=== PATIENT | female | born 1975 | race Caucasian/White ===

== ENCOUNTER → 2019-09-08 10:10 | Outpatient (BNVA) | payer OTHER, SELFPAY | PROVIDERS: Family Provider Nurse Practitioner Family; PCP Nurse Practitioner Family; Visit Provider Nurse Practitioner Family | DX: J98.8 Other specified respiratory disorders (principal); B96.89 Other specified bacterial agents as the cause of diseases classified elsewhere; R05 Cough | CPT/HCPCS: 87804 ==

== ENCOUNTER → 2019-09-08 14:09 | Outpatient (BNVA) | payer OTHER, SELFPAY | PROVIDERS: Family Provider Nurse Practitioner Family; PCP Nurse Practitioner Family; Visit Provider Anesthesiology | DX: G89.29 Other chronic pain (principal); M54.41 Lumbago with sciatica, right side; M79.651 Pain in right thigh; F17.210 Nicotine dependence, cigarettes, uncomplicated; Z87.39 Personal history of other diseases of the musculoskeletal system and connective tissue; Z79.891 Long term (current) use of opiate analgesic | CPT/HCPCS: 99214 ==

== ENCOUNTER 2019-09-27 16:47 | Emergency (ER) | payer OTHER, SELFPAY ==
[2019-09-27 16:50] VITALS: BP 143/101; PULSE 90; RESP 16; TEMP 36.8; O2SAT 98; BMI 32.5
--- NOTE | 2019-09-27 17:02 | W.ED.BACK ---
HPI - Back Pain/Injury General: Chief Complaint: Back Pain/Injury Stated Complaint: BACK, LEG AND HIP PAIN Time Seen by Provider: 09/27/19 17:01 History of Present Illness: HPI Narrative: Patient is a 43-year-old female comes to the ED with acute on chronic lower back pain. Patient states that yesterday she bent over to lift something and she felt something pop in her lower back and she is now having intense pain in the lower back that radiates down right leg. Patient says she has chronic back issues and actually has a pain contract and currently takes hydrocodone for the pain. Patient says she is taken her hydrocodone and it has not helped with the pain at all. She rates the pain a 10 out of 10. Denies any numbness or tingling down the extremities, bladder or bowel incontinence or loss of sensation in the pelvic region. Associated symptoms: Deny abdominal pain, chills, dysuria, fatigue, fever(s), hematuria, nausea or vomiting Review of Systems Const: Denies: fever, chills or fatigue Eyes: Denies: change in vision or eye discomfort ENMT: Denies: throat pain, painful swallowing, nasal discharge or nasal congestion Card: Denies: chest pain, palpitations, edema, swelling of feet/ankles, shortness of breath on exertion or shortness of breath when lying down Resp: Denies: shortness of breath, productive cough or non-productive cough GI: Denies: abdominal pain, nausea, vomiting, diarrhea, constipation or blood in stool : Denies: flank pain, painful urination or blood in urine Musc: Reports: back pain (lower back pain) and extremity pain (back pain radiates down right leg); Denies: neck pain or extremity swelling Skin/Breast: Denies: rash or new lesion Neuro: Denies: headache, numbness in extremities or weakness in extremities PFS ED PFSH: Medical History Chronic midline low back pain with right-sided sciatica Encounter for long-term use of opiate analgesic H/O low back pain Opioid contract exists Surgical History H/O knee surgery H/O tubal ligation History of hysterectomy Family History Other Diabetes Hypertension Lung disease Psychiatric illness Social History Smoking and tobacco status: current every day smoker cigarettes Packs smoked per day: 0.5 Quit status (tobacco): has tried quititng Second hand smoke exposure: Yes Smoking risk assessment/counseling performed?: No Alcohol intake: current Adopted: No Caregiver/support person: No Lives independently: Yes Physical Exam Narrative: EXAM NARRATIVE: Patient is a 43-year-old female who was lying on the exam bed when I enter the room and appears to be in acute pain. She is crying and has tears in her eyes due to pain. Const: COMMON NORMALS: oriented x3 HENMT: COMMON NORMALS: normocephalic HEAD & SCALP: normocephalic MOUTH: oral and palatal mucosa normal THROAT: posterior oropharynx normal and uvula midline Neck/C-Spine: COMMON NORMALS: supple GENERAL: Yes normal visual inspection Resp: COMMON NORMALS: normal respiratory effort, no retractions, no use of accessory muscles and clear to auscultation bilaterally AUSCULTATION: clear to auscultation bilaterally Cardio: COMMON NORMALS: regular rate, regular rhythm, S1 normal heart sound, S2 normal heart sound, no gallops, no clicks, no murmurs and peripheral pulses 2+ throughout RATE: regular rate RHYTHM: regular rhythm HEART SOUNDS: S1 normal and S2 normal PERIPHERAL PULSES: pulses 2+ throughout GI: COMMON NORMALS: normal to inspection, nondistended, normoactive bowel sounds, soft to palpation, non-tender and no masses PALPATION: Yes soft : COMMON NORMALS: Yes no CVA tenderness BLADDER/KIDNEY EXAM: Yes no CVA tenderness Back/Pelvis: COMMON NORMALS: no CVA tenderness Extremity: COMMON NORMALS: normal to inspection Neuro: COMMON NORMALS: oriented x3 and moves all extremities Skin: COMMON NORMALS: no rashes or lesions noted GENERAL SKIN EXAM: no rashes or lesions noted and dry skin Course Vital Signs: Vital signs: Vital Signs Temperature 98.2 F 09/27/19 16:50 Pulse Rate 89 09/27/19 18:39 Respiratory Rate 16 09/27/19 18:39 Blood Pressure 155/93 09/27/19 18:39 Pulse Oximetry 97 09/27/19 18:39 MDM - Back Pain/Injury Imaging Data^: Other CT: Attestation: I personally reviewed and interpreted this imaging study as follows: Radiologist's impression: [address] [address] [address] Scan Report Signed Patient: Melisa Nascimento Unit #: [id number] : 1975 Age/Sex: 43 / F ADM Date: 09/27/19 Loc: ER Room/Bed: Attending Dr: Ordering Provider/Ordering MD: Luis Rios Date of Service: 09/27/19 Procedure(s): CT lumbar spine wo con* [id number] Accession Number(s): [id number] Report Number: [id number] PROCEDURE INFORMATION: Exam: CT Lumbar Spine Without Contrast Exam date and time: 09/27/2019 5:21 PM Age: 43 years old Clinical indication: Low back pain; Additional info: Back pain with radiculopathy TECHNIQUE: Imaging protocol: Computed tomography images of the lumbar spine without contrast. Total DLP: 2603.15 mGy-cm Radiation optimization: All CT scans at this facility use at least one of these dose optimization techniques: automated exposure control; mA and/or kV adjustment per patient size (includes targeted exams where dose is matched to clinical indication); or iterative reconstruction. COMPARISON: MRI Lumbar Spine w/o [id number] 04/29/2019 5:45 PM FINDINGS: Vertebrae: No visible fracture, subluxation, or dislocation. No visible traumatic spondylolysis or spondylolisthesis. Rare bone island. Discs/Spinal canal/Neural foramina: Mild degenerative disc disease with mild disc space height loss and mild vacuum disc phenomenon L2/L3. Anterior/ventral annular disc bulge. No visible significant posterior disc bulge or HNP. Mild left paramedian focal annular disc bulge L4/L5 without central canal stenosis or evidence for nerve root compromise. Mild posterior disc bulge L5/S1 not resulting in central canal stenosis or neural foraminal crush mint. No significant facet arthrosis. Vasculature: The visualized portion of the abdominal aorta is nonaneurysmal. Mild arterial sclerotic disease. No other visible active pathologic process within the retroperitoneal space within the field of view. Soft tissues: Unremarkable. No visible paraspinal muscle atrophy. CT/CT lumbar spine wo con* [id number] IMPRESSION: 1. No visible evidence of active or acute osseous pathology. 2. Mild degenerative disc disease with mild disc space height loss and vacuum disc phenomena L2/L3. 3. No visible herniated nucleus pulposis or significant posterior annular disc bulge that would result in central canal stenosis or neural foraminal carotid. 4. Mild left paramedian focal annular disc bulge L4/L5 without central canal stenosis or visible nerve root compromise. Radiation Dose CTDIVOL = (mGy): DLP = 2603.15 (mGy-cm) Dictated By: Sven Rizvi Signed By: Sven Rizvi Signed Date/Time: 09/27/191801 DD/ 58 Discharge Plan Discharge Patient Disposition: Home, Self-Care Clinical Impression: Chronic midline low back pain with right-sided sciatica Condition: Stable Prescriptions: No Action duloxetine 60 mg capsule, delayed rel sprinkle 60 mg PO DAILY RF: 0 clonidine HCl 0.1 mg tablet 0.1 mg PO .PRN RF: 0 acetaminophen [Tylenol Extra Strength] 500 mg tablet 500 mg PO DAILY PRN (Reason: Pain) RF: 0 lisinopril-hydrochlorothiazide 20-25 mg tablet 1 tab PO DAILY RF: 0 tizanidine 2 mg tablet 2 mg PO TID PRN (Reason: MUSCLE SPASMS) RF: 0 hydrocodone-acetaminophen 5-325 mg tablet 1 tab PO QID PRN (Reason: pain) 30 Days Qty: 120 RF: 0 Discharge Orders: Discharge Order (Routine); Ordered 09/27/19 Ordered By: Luis Rios Referrals: Sindi El FNP [Primary Care Provider] - Discharge Diet: Regular Discharge Activity: Increase activity as tolerated Patient Instructions: Lumbar Radiculopathy (ED) Activity Restrictions/Additional Instructions: Follow-up with your PCP in 5 to 7 days for reevaluation. Take full course of steroids as prescribed. Continue taking your previously prescribed pain medication as directed by Stand Alone Forms: Work/School Release Discharge Date/Time: 09/27/19 18:40 Coding Level of Care Code ED Linux Programmer for Yadiel Fwd Exam Comprehensive
[2019-09-27 17:04] VITALS: O2SAT 98
--- NOTE | 2019-09-27 17:14 | CTR_ITS ---
PROCEDURE INFORMATION: Exam: CT Lumbar Spine Without Contrast Exam date and time: 09/27/2019 5:21 PM Age: 43 years old Clinical indication: Low back pain; Additional info: Back pain with radiculopathy TECHNIQUE: Imaging protocol: Computed tomography images of the lumbar spine without contrast. Total DLP: 2603.15 mGy-cm Radiation optimization: All CT scans at this facility use at least one of these dose optimization techniques: automated exposure control; mA and/or kV adjustment per patient size (includes targeted exams where dose is matched to clinical indication); or iterative reconstruction. COMPARISON: MRI Lumbar Spine w/o [id number] 04/29/2019 5:45 PM FINDINGS: Vertebrae: No visible fracture, subluxation, or dislocation. No visible traumatic spondylolysis or spondylolisthesis. Rare bone island. Discs/Spinal canal/Neural foramina: Mild degenerative disc disease with mild disc space height loss and mild vacuum disc phenomenon L2/L3. Anterior/ventral annular disc bulge. No visible significant posterior disc bulge or HNP. Mild left paramedian focal annular disc bulge L4/L5 without central canal stenosis or evidence for nerve root compromise. Mild posterior disc bulge L5/S1 not resulting in central canal stenosis or neural foraminal crush mint. No significant facet arthrosis. Vasculature: The visualized portion of the abdominal aorta is nonaneurysmal. Mild arterial sclerotic disease. No other visible active pathologic process within the retroperitoneal space within the field of view. Soft tissues: Unremarkable. No visible paraspinal muscle atrophy. CT/CT lumbar spine wo con* [id number] IMPRESSION: 1. No visible evidence of active or acute osseous pathology. 2. Mild degenerative disc disease with mild disc space height loss and vacuum disc phenomena L2/L3. 3. No visible herniated nucleus pulposis or significant posterior annular disc bulge that would result in central canal stenosis or neural foraminal carotid. 4. Mild left paramedian focal annular disc bulge L4/L5 without central canal stenosis or visible nerve root compromise. Radiation Dose CTDIVOL = (mGy): DLP = 2603.15 (mGy-cm)
[2019-09-27] MEDS: predniSONE 20 mg Tablet 60 MG PO (17:20)
[2019-09-27] MEDS: morphine 4 mg/mL SDV 1 mL IM (17:20)
[2019-09-27 18:39] VITALS: BP 155/93; PULSE 89; RESP 16; O2SAT 97
== END 2019-09-27 18:40 | disposition home or self-care (01) ==
PROVIDERS: Emergency Provider Physician Assistant; Family Provider Nurse Practitioner Family; PCP Nurse Practitioner Family
DX: M54.41 Lumbago with sciatica, right side (principal); F17.210 Nicotine dependence, cigarettes, uncomplicated
CPT/HCPCS: 12345; 72131; 96372; 99281; 99283; J2270; J7512

== ENCOUNTER 2019-10-02 13:33 | Outpatient (CLI) | payer OTHER, SELFPAY ==
--- NOTE | 2019-10-02 13:45 | MR_ITS ---
WS: [id number] MRI LUMBAR SPINE NONCONTRAST TECHNIQUE: Sagittal T1, T2 and STIR imaging. Axial T1 and T2 imaging. CLINICAL INFORMATION: increased chronic lower back pain with numbness COMPARISON: MRI April 29, 2019 CT September 2019 FINDINGS: Mild lumbar curve. No acute compression. Schmorl's nodes in the lower thoracic and upper lumbar spine . No high-grade central canal stenosis. L1-L2: Normal. L2-L3: Mild annular bulging. Spinal canal and foramen are patent. L3-L4: Mild annular bulging. Mild facet arthropathy. Spinal canal and foramen are patent. L4-L5: Small shallow left pericentral protrusion. Impingement traversing left L5 nerve root in the knihgt barticular recess. Recommend correlation for left L5 nerve root symptoms. Foramen are patent. Moderat e facet arthropathy. L5-S1: Tiny shallow central protrusion with slight effacement of ventral thecal sac. Spinal canal and foramen are patent. Moderate facet arthropathy. Visualized pelvic bony structures: Normal. Paravertebral soft tissues: Normal. MR/MR lumbar spine wo con* [id number] IMPRESSION: 1. Mild lumbar curve. No acute compression. No high-grade central canal stenos is. 2. Small left subarticular disc protrusion L4-5 impinges the traversing left L 5 nerve root in the subarticular recess.Correlation left L5 nerve root symptoms . This is similar in appearance to 2019. 3. Tiny central herniation L5-S1. No significant nerve root impingement. 4. Mild annular bulging L2-L3 and L3-L4. 5. Moderate facet arthropathy L4-L5 and L5-S1. 6. Overall no significant changes since April 29, 2019
== END 2019-10-02 13:34 | disposition home or self-care (01) ==
LOC: RADSHAW 13:33
PROVIDERS: Family Provider Nurse Practitioner Family; PCP Nurse Practitioner Family; Visit Provider Nurse Practitioner Family
DX: M51.27 Other intervertebral disc displacement, lumbosacral region (principal); M51.26 Other intervertebral disc displacement, lumbar region; G89.29 Other chronic pain; R20.0 Anesthesia of skin
CPT/HCPCS: 72148

== ENCOUNTER 2019-11-29 21:44 | Emergency (ER) | payer OTHER, SELFPAY ==
[2019-11-29 21:55] VITALS: BP 131/85; PULSE 81; RESP 18; TEMP 36.9; O2SAT 97; BMI 31.9
--- NOTE | 2019-11-29 22:15 | XR_ITS ---
WS: [id number] LEFT FOOT: 3 VIEW(S) TECHNIQUE: AP, oblique and lateral. HISTORY: trauma COMPARISON: None available. No acute fracture or dislocation. Normal tarsal/metatarsal alignment. No soft tissue abnormality or bone destruction. XR/XR foot LT min 3V* [id number] IMPRESSION: Normal LEFT foot.
--- NOTE | 2019-11-29 22:16 | ED_ITS ---
HPI - Extremity Problem General: Chief complaint: Extremity Injury, Lower Stated complaint: leg pain Time Seen by Provider: 11/29/19 22:09 History of Present Illness: HPI Narrative: Patient states she injured her left foot a couple 3 days ago and is hurt continually has pain on weightbearing said she has some swelling to the left forefoot and has not improved MD Complaint: extremity pain and extremity swelling Onset (ago): day(s) Pain Consistency: constant Location: left and lower extremity Severity scale (1-10): 4 Quality: aching Radiation: other (Upper leg) Relieving factors: rest Exacerbating factors: weight bearing Associated symptoms: Reports no associated symptoms; Deny chest pain, fever(s) or rash Review of Systems Const: Denies: fever, chills or body aches Eyes: Denies: change in vision or blurry vision ENMT: Denies: throat pain or nasal congestion Card: Denies: chest pain or shortness of breath on exertion Resp: Denies: shortness of breath, productive cough or non-productive cough GI: Denies: abdominal pain, nausea or vomiting Musc: Denies: extremity pain Skin/Breast: Reports: other (Left foot pain); Denies: rash Neuro: Denies: headache Psych: Denies: anxiety or depression Dudley/Lymph: Denies: easy bruising PFSH ED PFSH: Social History Smoking and tobacco status: current every day smoker cigarettes Packs smoked per day: 0.5 Quit status (tobacco): has tried quititng Second hand smoke exposure: Yes Smoking risk assessment/counseling performed?: No Alcohol intake: current Adopted: No Caregiver/support person: No Lives independently: Yes Female Reproductive History: Date of last menstrual period: 12/20/10 Physical Exam Const: COMMON NORMALS: no apparent distress, average body habitus and oriented x3 HENMT: COMMON NORMALS: normocephalic HEAD & SCALP: normal to inspection and normocephalic FACE & SINUS: normal facial exam Eye: COMMON NORMALS: conjunctivae normal GENERAL EYE: normal appearance of both eyes CONJUNCTIVA: Yes conjunctivae normal Neck/C-Spine: COMMON NORMALS: no JVD Chest: COMMONS NORMALS: inspection of chest normal Resp: COMMON NORMALS: normal respiratory effort and clear to auscultation bilaterally AUSCULTATION: clear to auscultation bilaterally Cardio: COMMON NORMALS: no JVD, regular rate and regular rhythm RATE: regular rate RHYTHM: regular rhythm GI: COMMON NORMALS: normal to inspection, nondistended, normoactive bowel sounds Extremity: COMMON NORMALS: normal to inspection and full ROM (Using crutches) LEFT LOWER EXTREMITY: Yes foot & digits (Mild tenderness to left foot without bruising swelling or other problems does have full range of motion) Neuro: COMMON NORMALS: oriented x3 Course Vital Signs: Vital signs: Vital Signs Temperature 98.5 F 11/29/19 21:55 Pulse Rate 81 11/29/19 21:55 Respiratory Rate 18 11/29/19 21:55 Blood Pressure 131/85 11/29/19 21:55 Pulse Oximetry 97 11/29/19 21:55 Discharge Plan Discharge Prescriptions: No Action duloxetine 60 mg capsule, delayed rel sprinkle 60 mg PO DAILY RF: 0 clonidine HCl 0.1 mg tablet 0.1 mg PO .PRN RF: 0 acetaminophen [Tylenol Extra Strength] 500 mg tablet 500 mg PO DAILY PRN (Reason: Pain) RF: 0 cetirizine [Zyrtec] 10 mg tablet 10 mg PO BID RF: 0 multivitamin Tablet 1 tab PO DAILY RF: 0 lisinopril-hydrochlorothiazide 20-25 mg tablet 1 tab PO DAILY Qty: 90 RF: 3 tizanidine 4 mg tablet 4 mg PO TID PRN (Reason: muscle spasticity) Qty: 90 RF: 1 hydrocodone-acetaminophen 5-325 mg tablet 1 tab PO QID PRN (Reason: pain) 30 Days Qty: 120 RF: 0 hydrocodone-acetaminophen 5-325 mg tablet 1 tab PO QID PRN (Reason: pain) 30 Days Qty: 120 RF: 0 Coding Level of Care Code ED Insurance Service Representative for Yadiel Villar
[2019-11-29 23:23] VITALS: BP 136/74; PULSE 84; RESP 18; O2SAT 98
== END 2019-11-29 23:24 | disposition home or self-care (01) ==
PROVIDERS: Emergency Provider Nurse Practitioner Family; PCP Nurse Practitioner Family
DX: M79.672 Pain in left foot (principal); F17.210 Nicotine dependence, cigarettes, uncomplicated
CPT/HCPCS: 12345; 73630; 99281; 99282

== ENCOUNTER → 2020-02-09 13:41 | Outpatient (BNVA) | payer OTHER, SELFPAY | PROVIDERS: PCP Nurse Practitioner Family; Visit Provider Anesthesiology | DX: G89.29 Other chronic pain (principal); M54.41 Lumbago with sciatica, right side; F17.210 Nicotine dependence, cigarettes, uncomplicated; Z79.891 Long term (current) use of opiate analgesic; Z87.39 Personal history of other diseases of the musculoskeletal system and connective tissue; Z71.6 Tobacco abuse counseling | CPT/HCPCS: 99214 ==

== ENCOUNTER 2020-05-30 14:20 | Emergency (ER) | payer OTHER, SELFPAY ==
[2020-05-30 14:37] VITALS: BP 136/79; PULSE 68; RESP 16; TEMP 36.8; O2SAT 100; BMI 34.2
--- NOTE | 2020-05-30 14:52 | XR_ITS ---
WS: [id number] XR hand RT min 3V* [id number] REASON FOR EXAM: hand pain FINDINGS: Joint spaces of the right hand are well preserved. No fracture or other focal bony abnormality is identified. No soft tissue tissue abnormality. XR/XR hand RT min 3V* [id number] IMPRESSION: No significant focal abnormality.
--- NOTE | 2020-05-30 14:53 | ED_ITS ---
HPI - Extremity Problem General: Chief complaint: Extremity Injury, Upper Stated complaint: Right Hand Injury Pain/Swelling Time Seen by Provider: 05/30/20 14:45 Source: patient Mode of arrival: ambulatory Limitations: no limitations History of Present Illness: HPI Narrative: 44-year-old female patient presents to the emergency department with right hand pain. She reports a door with the ulnar side of the right hand this morning around 4:30 AM. She reports pains to the ulnar side with radiation of pain distally and proximally. MD Complaint: joint swelling (rt hand) Pain Consistency: constant Location: right and upper extremity Severity scale (1-10): 7 Quality: aching and dull Radiation: proximal and distal Relieving factors: immobilization and rest Exacerbating factors: range of motion Associated symptoms: Reports no associated symptoms; Deny chest pain, fever(s) or rash Review of Systems General: Reports: 10 or more systems reviewed and unremarkable except in HPI and below Const: Denies: fever(s), chills or diaphoresis Eyes: Denies: blurry vision or eye redness ENMT: Denies: throat pain, dental pain or disequilibrium Card: Denies: chest pain, palpitations or irregular heart rhythm Resp: Denies: dyspnea, productive cough, non-productive cough or wheezing GI: Denies: abdominal pain, nausea or vomiting : Denies: difficulty voiding or dysuria Musc: Reports: extremity swelling (rt ulnar hand); Denies: neck pain or back pain Skin/Breast: Denies: rash or pruritus Neuro: Denies: headache(s), weakness in extremities or behavioral changes Psych: Denies: anxiety or depression Dudley/Lymph: Denies: easy bruising PFSH ED PFSH: Medical History Chronic midline low back pain with right-sided sciatica Encounter for long-term use of opiate analgesic H/O low back pain Opioid contract exists Smoker Surgical History H/O knee surgery H/O tubal ligation History of hysterectomy Family History Other Diabetes Hypertension Lung disease Psychiatric illness Social History Smoking and tobacco status: current every day smoker cigarettes Packs smoked per day: 0.5 Quit status (tobacco): has tried quititng Second hand smoke exposure: Yes Smoking risk assessment/counseling performed?: No Alcohol intake: current Adopted: No Caregiver/support person: No Lives independently: Yes Female Reproductive History: Date of last menstrual period: 12/20/10 Physical Exam Const: COMMON NORMALS: no acute distress, patient oriented x3, healthy ap pearing and alert GENERAL APPEARANCE: cooperative, comfortable and well hydrated HENMT: COMMON NORMALS: normocephalic, Normal external nose present and moist oral mucous membranes HEAD & SCALP: normocephalic NOSE: Normal external nose present Eye: COMMON NORMALS: Equal, round and reactive pupils present and EOMs intact bilaterally GENERAL EYE: appearance normal, both eyes and all related structures PUPIL: Yes Equal, round and reactive pupils present Neck/C-Spine: COMMON NORMALS: full ROM and no lymphadenopathy GENERAL: Yes normal visual inspection and Yes trachea midline CERVICAL SPINE: Yes cervical ROM normal Lymph: LYMPHATIC: no lymphadenopathy noted Chest: COMMONS NORMALS: normal inspection of the chest Resp: COMMON NORMALS: normal respiratory effort and clear to auscultation b ilaterally AUSCULTATION: clear to auscultation bilaterally Cardio: COMMON NORMALS: regular rhythm, S1 normal heart sound present, S2 normal heart sound present and Peripheral pulses 2+ throughout RHYTHM: regular rhythm HEART SOUNDS: S1 normal heart sound present and S2 normal heart sound present PERIPHERAL PULSES: Peripheral pulses 2+ throughout GI: COMMON NORMALS: Soft to palpation and non-tender INSPECTION: Yes normal to inspection PALPATION: Yes Soft to palpation : COMMON NORMALS: Yes no CVA tenderness BLADDER/KIDNEY EXAM: Yes no CVA tenderness Back/Pelvis: COMMON NORMALS: no CVA tenderness and thoracic and lumbar spine normal to inspection Extremity: COMMON NORMALS: normal to inspection and capillary refill normal GENERAL: Yes normal exam except as noted RIGHT UPPER EXTREMITY: Yes hand & digits Right hand and digits: Yes inspection (edema and swelling to the rt ulnar hand - 4th and 5th MCP), Yes ROM exam (limited flexion/extension 4th and 5th fingers due to pain) and Yes neurovascular exam (distally intact) Neuro: COMMON NORMALS: patient oriented x3 and no focal motor deficits SENSORIUM/ORIENTATION: Yes alert Psych: COMMON NORMALS: mental status grossly normal, Normal thought process present and cooperative ACTIVITY/MOTOR BEHAVIOR: Yes appropriate eye contact THOUGHT PROCESS: Normal thought process present Skin: COMMON NORMALS: no rashes or lesions noted and turgor normal GENERAL SKIN EXAM: no rashes or lesions noted and turgor normal Course Vital Signs: Vital signs: Vital Signs Temperature 98.3 F 05/30/20 14:37 Pulse Rate 63 05/30/20 16:02 Respiratory Rate 14 05/30/20 16:02 Blood Pressure 133/65 05/30/20 16:02 Pulse Oximetry 97 05/30/20 16:02 MDM - Extremity (Nontraumatic) Imaging Data^: Xray Ortho: Radiologist's impression: [address] [address] XRay Report Signed Patient: Melisa Nascimento Unit #: [id number] : 1975 Age/Sex: 44 / F ADM Date: 05/30/20 Loc: ER Room/Bed: Attending Dr: Ordering Provider/Ordering MD: Nae Williamson Date of Service: 05/30/20 Procedure(s): XR hand RT min 3V* [id number] Accession Number(s): [id number] Report Number: [id number] WS: [id number] XR hand RT min 3V* [id number] REASON FOR EXAM: hand pain FINDINGS: Joint spaces of the right hand are well preserved. No fracture or other focal bony abnormality is identified. No soft tissue tissue abnormality. XR/XR hand RT min 3V* [id number] IMPRESSION: No significant focal abnormality. Dictated By: Rajinder Padilla Jr, MD Signed By: Rajinder Padilla Jr, MD Signed Date/Time: 05/30/201516 DD/ 14 Discharge Plan Discharge Condition: Stable Prescriptions: No Action duloxetine 60 mg capsule, delayed rel sprinkle 60 mg PO DAILY RF: 0 clonidine HCl 0.1 mg tablet 0.1 mg PO .PRN RF: 0 acetaminophen [Tylenol Extra Strength] 500 mg tablet 500 mg PO DAILY PRN (Reason: Pain) RF: 0 cetirizine [Zyrtec] 10 mg tablet 10 mg PO BID RF: 0 multivitamin Tablet 1 tab PO DAILY RF: 0 lisinopril-hydrochlorothiazide 20-25 mg tablet 1 tab PO DAILY Qty: 90 RF: 3 tizanidine 4 mg tablet 4 mg PO TID PRN (Reason: muscle spasticity) Qty: 90 RF: 1 hydrocodone-acetaminophen 5-325 mg tablet 1 tab PO QID PRN (Reason: pain) 30 Days Qty: 120 RF: 0 hydrocodone-acetaminophen 5-325 mg tablet 1 tab PO QID PRN (Reason: pain) 30 Days Qty: 120 RF: 0 Discharge Orders: Discharge Order (Routine); Ordered 05/30/20 Ordered By: Nae Williamson Referrals: Sindi El, CANCER REGISTRY COORDINATOR [Primary Care Provider] - Discharge Diet: Usual diet Discharge Activity: Limit activity as instructed Patient Instructions: Wrist Injury (ED), Contusion in Adults (ED), Sprains - W rist Activity Restrictions/Additional Instructions: Take ibuprofen/Tylenol as needed for pain Continue with cool compresses as needed to help with pain, wear a Velcro wrist splint to help with pain until better Follow-up with your primary care provider in 5 days if not improving Limit mobility of the hand and wrist to help with pain Coding Level of Care Code ED Tobacco Blender for Chg Fwd Exam Comprehensive
[2020-05-30] MEDS: HYDROcodone-acetaminophen 5-325 mg Tablet 1 TAB PO (14:58)
[2020-05-30 16:02] VITALS: BP 133/65; PULSE 63; RESP 14; O2SAT 97
== END 2020-05-30 16:03 ==
PROVIDERS: Emergency Provider Nurse Practitioner Family; PCP Nurse Practitioner Family
DX: M79.641 Pain in right hand (principal); F17.210 Nicotine dependence, cigarettes, uncomplicated
CPT/HCPCS: 12345; 29125; 73130; 99281; 99283

== ENCOUNTER 2021-02-15 08:56 | Emergency (ER) | payer OTHER, SELFPAY ==
[2021-02-15 09:30] VITALS: BP 138/31; PULSE 106; RESP 16; TEMP 36.7; O2SAT 97; BMI 33.2
--- NOTE | 2021-02-15 09:30 | ECG_ITS ---
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 Measurements Intervals [place] Rate: 59 P: 72 VA: 156 QRS: 83 QRSD: 89 T: 68 QT: 446 QTc: 445 Interpretive Statements SINUS BRADYCARDIA LOW QRS VOLTAGE IN PRECORDIAL LEADS [QRS DEFLECTION < 1.0 mV IN CHEST LEADS] SEPTAL MYOCARDIAL INFARCTION [40+ ms Q WAVE IN V1/V2], OF INDETERMINATE AGE Compared to ECG 03/20/2019 11:11:34 Low QRS voltage now present Myocardial infarct finding now present Sinus tachycardia no longer present First degree AV block no longer present ST (T wave) deviation no longer present Electronically Signed On 02-20-2021 0:28:50 CDT by Zohra Flowers M.D. [id number]
--- NOTE | 2021-02-15 09:30 | XR_ITS ---
WS: [id number] XR chest 1V portable [id number] REASON FOR EXAM: chest pain FINDINGS: The chest appears unchanged compared to 03/20/2019 The heart and mediastinum are within normal limits. Calcified granulomatous changes in both hemithoraces. No active pulmonary parenchymal or pleural dise ase. Normal bony thorax. XR/XR chest 1V portable [id number] IMPRESSION: No acute abnormality.
[2021-02-15 10:33] VITALS: BP 134/68; PULSE 51; RESP 18; O2SAT 98
--- NOTE | 2021-02-15 10:48 | ED_ITS ---
HPI - Chest Pain General: Chief Complaint: Chest Pain Stated Complaint: Chest Pain Time Seen by Provider: 02/15/21 10:37 Source: patient Mode of arrival: ambulatory Limitations: no limitations History of Present Illness: HPI narrative: Patient is a nice 45-year-old female who presents to ED today for evaluation of chest pain. Patient states she awoke around 3 AM with chest pain that she states felt very similar to heartburn. She states she took Tums and drank some ice cold water. She states she contacted some form of a nursing line who recommended she come to the ED for cardiac evaluation stating that the most common presenting symptom in females with heart attacks is heartburn . This gave her much anxiety and states then she had an anxiety attack. Patient has no cardiac or pulmonary abnormalities. She does feel like breathing exercises as well as the Tums and cold water help with her symptoms. MD complaint: chest pain Onset (ago): hour(s) Prior episodes: No Onset: during rest Pain location: substernal Pain radiation: none Severity: moderate Pain scale (0-10): 5 Relieving factors: antacids and other (cold water, breathing exercises ) Exacerbating factors: nothing Associated symptoms: Deny abdominal pain, diaphoresis, dyspnea, fever(s), nausea, palpitations, syncope or vomiting Risk Factors: Coronary artery disease risk factors: smoking history Thoracic aortic dissection risk factors: none Related Data: On Oral Contraceptives: No Review of Systems Const: Denies: fever(s), chills, body aches, fatigue, malaise or diaphoresis Card: Reports: chest pain; Denies: palpitations, irregular heart rhythm, edema, swelling of feet/ankles, lightheadedness, syncope, pre-syncope, dyspnea on exertion, orthopnea, leg pain with exertion or acrocyanosis Resp: Denies: dyspnea, productive cough, wheezing, hemoptysis or chest congestion GI: Denies: abdominal pain, nausea or vomiting Musc: Denies: neck pain Skin/Breast: Denies: rash Neuro: Denies: headache(s) PFSH ED PFSH: Medical History Chronic midline low back pain with right-sided sciatica Encounter for long-term use of opiate analgesic H/O low back pain Opioid contract exists Smoker Surgical History H/O knee surgery H/O tubal ligation History of hysterectomy Family History Other Diabetes Hypertension Lung disease Psychiatric illness Social History Smoking and tobacco status: current every day smoker cigarettes Packs smoked per day: 0.5 Quit status (tobacco): has tried quititng Second hand smoke exposure: Yes Smoking risk assessment/counseling performed?: No Alcohol intake: current Adopted: No Caregiver/support person: No Lives independently: Yes Female Reproductive History: Date of last menstrual period: 12/20/10 Physical Exam Const: COMMON NORMALS: no acute distress, average body habitus, patient oriented x3, no limitations, healthy appearing, alert and well nourished GENERAL APPEARANCE: cooperative HENMT: COMMON NORMALS: normocephalic and atraumatic HEAD & SCALP: normocephalic and atraumatic Chest: COMMONS NORMALS: normal inspection of the chest OTHER: mild tenderness to palpation mid sternum Resp: COMMON NORMALS: normal respiratory effort and clear to auscultation bilaterally AUSCULTATION: clear to auscultation bilaterally Cardio: COMMON NORMALS: regular rate and regular rhythm RATE: regular rate RHYTHM: regular rhythm GI: COMMON NORMALS: Normal to inspection, nondistended, normoactive bowel sounds present, Soft to palpation, non-tender, No hepatosplenomegaly present and no masses PALPATION: Yes Soft to palpation and Yes No hepatosplenomegaly present Extremity: COMMON NORMALS: capillary refill normal, no clubbing, cyanosis or edema, no calf tenderness and no pedal edema Neuro: COMMON NORMALS: patient oriented x3 SENSORIUM/ORIENTATION: Yes alert Skin: COMMON NORMALS: no rashes or lesions noted GENERAL SKIN EXAM: no rashes or lesions noted Course Vital Signs: Vital signs: Vital Signs Temperature 98.1 F 02/15/21 09:30 Pulse Rate 51 L 02/15/21 10:33 Respiratory Rate 18 02/15/21 10:33 Blood Pressure 134/68 02/15/21 10:33 Pulse Oximetry 98 02/15/21 10:33 MDM - Chest Pain MDM Narrative: Medical decision making narrative: Patient clinically is in no acute distress. Her vital signs are stable. EKG showing no ischemic changes. Labs including troponin are non-concerning. CXR normal. Based on timing of initial symptoms repeat troponin is not indicated. Lab Data: Attestation: I reviewed the patient's lab results. Labs: Lab Results 02/15/21 02/15/21 02/15/21 Range/Units 11:05 11:05 11:05 WBC 8.5 (4.0-10.0) 10^3/ uL RBC 4.51 (4.1-5.3) 10^6/u L Hgb 13.7 (11.5-15.3) g/dL Hct 41.7 (37.0-47.0) % MCV 92.5 (81-99) fL MCH 30.4 (28.0-34.0) pg MCHC 32.9 (30.0-36.0) g/dL RDW 13.0 (12.1-15.1) % Plt Count 267 (130-400) 10^3/c mm MPV 10.2 (7.4-10.4) fL Neut % (Auto) 69.8 % Lymph % (Auto) 25.1 % Smith % (Auto) 3.2 % Eos % (Auto) 0.7 % Baso % (Auto) 0.8 % Neut # (Auto) 5.91 (1.8-7.7) 10^3/u L Lymph # (Auto) 2.1 (0.8-4.8) 10^3/u L Smith # (Auto) 0.3 (0.2-0.9) 10^3/u L Eos # (Auto) 0.1 (0.0-0.8) 10^3/u L Baso # (Auto) 0.1 (0.0-0.1) 10^3/u L Nucleated RBC % (a uto) 0 % Nucleated RBCs # 0.0 /100WBC Sodium 138 (136-145) mmol/L Potassium 3.8 (3.5-5.1) mmol/L Chloride 103 (98-107) mmol/L Carbon Dioxide 25 (22-29) mmol/L Anion Gap 13.8 (5-19) BUN 11 (6-20) mg/dL Creatinine 0.5 (0.5-0.9) mg/dL GFR Calculation 134.0 H (90-130) mL/min Glucose 98 (65-115) mg/dL Calculated Osmolal ity 285 (285-295) mOsm/k g Calcium 8.9 (8.5-10.5) mg/dL Total Bilirubin 0.3 (0.15-1.2) mg/dL AST 18 (0-32) U/L ALT 21 (0-33) U/L Alkaline Phosphata se 102 (35-105) IU/L Troponin T Baselin e 6 (0-10) ng/L Total Protein 6.5 L (6.6-8.7) g/dL Albumin 4.6 (3.5-5.2) g/dL Globulin 1.9 (1.3-4.6) g/dL HCG, Qual (Negative) 02/15/21 Range/Units 11:05 WBC (4.0-10.0) 10^3/ uL RBC (4.1-5.3) 10^6/u L Hgb (11.5-15.3) g/dL Hct (37.0-47.0) % MCV (81-99) fL MCH (28.0-34.0) pg MCHC (30.0-36.0) g/dL RDW (12.1-15.1) % Plt Count (130-400) 10^3/c mm MPV (7.4-10.4) fL Neut % (Auto) % Lymph % (Auto) % Smith % (Auto) % Eos % (Auto) % Baso % (Auto) % Neut # (Auto) (1.8-7.7) 10^3/u L Lymph # (Auto) (0.8-4.8) 10^3/u L Smith # (Auto) (0.2-0.9) 10^3/u L Eos # (Auto) (0.0-0.8) 10^3/u L Baso # (Auto) (0.0-0.1) 10^3/u L Nucleated RBC % (a uto) % Nucleated RBCs # /100WBC Sodium (136-145) mmol/L Potassium (3.5-5.1) mmol/L Chloride (98-107) mmol/L Carbon Dioxide (22-29) mmol/L Anion Gap (5-19) BUN (6-20) mg/dL Creatinine (0.5-0.9) mg/dL GFR Calculation (90-130) mL/min Glucose (65-115) mg/dL Calculated Osmolal ity (285-295) mOsm/k g Calcium (8.5-10.5) mg/dL Total Bilirubin (0.15-1.2) mg/dL AST (0-32) U/L ALT (0-33) U/L Alkaline Phosphata se (35-105) IU/L Troponin T Baselin e (0-10) ng/L Total Protein (6.6-8.7) g/dL Albumin (3.5-5.2) g/dL Globulin (1.3-4.6) g/dL HCG, Qual Negative (Negative) Imaging Data^: CXR: Radiologist's impression: [address] [address] XRay Report Signed Patient: Melisa Nascimento Unit #: [id number] : 1975 Age/Sex: 45 / F ADM Date: 02/15/21 Loc: ER Room/Bed: Attending Dr: Ordering Provider/Ordering MD: July Hooper Date of Service: 02/15/21 Procedure(s): XR chest 1V portable [id number] Accession Number(s): [id number] Report Number: [id number] WS: [id number] XR chest 1V portable [id number] REASON FOR EXAM: chest pain FINDINGS: The chest appears unchanged compared to 03/20/2019 The heart and mediastinum are within normal limits. Calcified granulomatous changes in both hemithoraces. No active pulmonary parenchymal or pleural disease. Normal bony thorax. XR/XR chest 1V portable [id number] IMPRESSION: No acute abnormality. Dictated By: Rajinder Padilla Jr, MD Signed By: Rajinder Padilla Jr, MD Signed Date/Time: 02/15/21 1012 DD/ 1010 EKG Data^: EKG 1: EKG interpretation date: 02/15/21 EKG interpretation time: 09:36 Interpretation: Sinus bradycardia Rate [address] elevation or depression changes noted Also signed by Dr. Hackett Artifact present so EKG was repeated at 10:51-again no acute ST elevation/depression noted Discharge Plan Discharge Patient Disposition: Home Clinical Impression: Non-cardiac chest pain Condition: Stable Prescriptions: No Action clonidine HCl 0.1 mg tablet 0.1 mg PO .PRN RF: 0 fluoxetine 40 mg capsule 40 mg PO QAM RF: 0 Marisol Allergy 60 mg Tablet 60 mg PO BID RF: 0 Tylenol Extra Strength 500 mg Tablet 1,000 mg PO PRN RF: 0 Aleve 220 mg Tablet 440 mg PO PRN RF: 0 gabapentin 100 mg capsule 100 mg PO TID RF: 0 ProAir HFA 90 mcg/actuation Hfa Aerosol Inhaler 2 puff INHALATION Q4H PRN (Reason: Shortness Of Breath) RF: 0 black cohosh 1 tab PO DAILY RF: 0 tizanidine 4 mg tablet 4 mg PO Q8H PRN (Reason: Muscle Spasm) RF: 0 lisinopril-hydrochlorothiazide 20-25 mg tablet 1 tab PO QAM RF: 0 Discharge Orders: Discharge ED (Routine); Ordered 02/15/21 Ordered By: July Hooper Referrals: Tata Monson FNP [Primary Care Provider] - Patient Instructions: Chest Pain (ED), Noncardiac Chest Pain (ED) Activity Restrictions/Additional Instructions: You may return to the emergency department for severe chest pain, shortness of breath, difficulty breathing, passing out episodes, fevers, or any other concerns you may have. I hope you begin to feel better soon. Coding Level of Care Code ED Paper Tube Machine Operator for Yadiel Villar
[2021-02-15 11:11] LABS: Basophils # 0.1 10^3/uL (0.0-0.1); Basophils % 0.8 %; Eosinophils # 0.1 10^3/uL (0.0-0.8); Eosinophils % 0.7 %; Hematocrit 41.7 % (37.0-47.0); Hemoglobin 13.7 g/dL (11.5-15.3); Lymphocytes # 2.1 10^3/uL (0.8-4.8); Lymphocytes % 25.1 %; Mean Corpuscular HGB Conc 32.9 g/dL (30.0-36.0); Mean Corpuscular Hemoglobin 30.4 pg (28.0-34.0); Mean Corpuscular Volume 92.5 fL (81-99); Mean Platelet Volume 10.2 fL (7.4-10.4); Monocytes # 0.3 10^3/uL (0.2-0.9); Monocytes % 3.2 %; Neutrophils # 5.91 10^3/uL (1.8-7.7); Neutrophils % 69.8 %; Nucleated Red Blood Cells % 0 %; Platelet Count 267 10^3/cmm (130-400); Red Blood Count 4.51 10^6/uL (4.1-5.3); White Blood Count 8.5 10^3/uL (4.0-10.0)
[2021-02-15 11:26] LABS: HCG, Serum Qual Negative (Negative)
--- NOTE | 2021-02-15 11:30 | ECG_ITS ---
[facility] Test Date: 2021-02-15 Pat Name: Melisa Nascimento Department: Room: Gender: Female Medical Physiologist: : 1975 Requested By: July Hooper Order Number: [id number] Kali MD: Jeramy Agrawal M.D. Measurements Intervals [place] Rate: 56 P: 59 WI: 183 QRS: 66 QRSD: 84 T: 58 QT: 438 QTc: 426 Interpretive Statements SINUS BRADYCARDIA LOW QRS VOLTAGE IN PRECORDIAL LEADS [QRS DEFLECTION < 1.0 mV IN CHEST LEADS] MODERATE ST DEPRESSION [0.05+ mV ST DEPRESSION] INTERPRETATION BASED ON A DEFAULT AGE OF 40 YEARS Compared to ECG 03/20/2019 11:11:34 Low QRS voltage now present Sinus tachycardia no longer present First degree AV block no longer present ST (T wave) deviation still present Electronically Signed On 02-16-2021 14:43:42 CDT by Jeramy Agrawal M.D. [id number]
[2021-02-15 11:37] LABS: Troponin(5th) Baseline 6 ng/L (0-10)
[2021-02-15 11:38] LABS: Alanine Aminotransferase 21 U/L (0-33); Albumin Level 4.6 g/dL (3.5-5.2); Alkaline Phosphatase 102 IU/L (35-105); Anion Gap 13.8 (5-19); Aspartate Amino Transferase 18 U/L (0-32); Blood Urea Nitrogen 11 mg/dL (6-20); Calcium 8.9 mg/dL (8.5-10.5); Carbon Dioxide 25 mmol/L (22-29); Chloride 103 mmol/L (98-107); Globulin 1.9 g/dL (1.3-4.6); Glucose 98 mg/dL (65-115); Osmolality Calculated 285 mOsm/kg (285-295); Potassium 3.8 mmol/L (3.5-5.1); Sodium 138 mmol/L (136-145); Total Bilirubin 0.3 mg/dL (0.15-1.2); Total Protein 6.5 g/dL (6.6-8.7)
[2021-02-15 12:35] VITALS: BP 131/59; PULSE 56; RESP 17; O2SAT 99
== END 2021-02-15 12:41 | disposition home or self-care (01) ==
PROVIDERS: Emergency Provider Physician Assistant; PCP Nurse Practitioner Family
DX: R07.89 Other chest pain (principal); F17.210 Nicotine dependence, cigarettes, uncomplicated
CPT/HCPCS: 71045; 80053; 84484; 84703; 85025; 93005; 99283

== ENCOUNTER → 2021-06-01 08:24 | Outpatient (BNVA) | payer OTHER, SELFPAY | PROVIDERS: PCP Nurse Practitioner Family; Referring Provider Nurse Practitioner Family; Visit Provider Physician Assistant | DX: M54.41 Lumbago with sciatica, right side (principal); G89.29 Other chronic pain; M16.0 Bilateral primary osteoarthritis of hip | CPT/HCPCS: 72110; 73503 ==

== ENCOUNTER 2021-06-30 13:46 | Outpatient (CLI) | payer SELFPAY ==
--- NOTE | 2021-06-30 13:45 | MR_ITS ---
WS: [id number] MRI LUMBAR SPINE NONCONTRAST HISTORY: M54.16 - Radiculopathy, lumbar region COMPARISON: 10/02/2019 TECHNIQUE: Sagittal and axial multisequence imaging is submitted. Focal reversal centered at C5-6 with mild deformity upon the ventral thecal sac. Mild straightening of the normal lumbar lordosis. Less than 2 mm retrolisthesis of L3. Similar to the prior study. No marrow edema or fracture. Mild disc space narrowing and desiccation throughout. Conus terminates normally at L1-2 disc level. L1-L2: Mild ligamentum flavum hypertrophy. No stenosis. L2-L3: Mild facet and ligamentum flavum hypertrophy. Small amount of fluid in the facet joints. No st enosis. L3-L4: Mild annular disc bulging. Small amount of fluid in the facet joints. No stenosis. L4-L5: Mild annular disc bulging. LEFT paracentral and subarticular recess disc protrusion has increa sed in size since the prior study. Progression of disc contact on the traversing LEFT L5 nerve root w ith displacement posteriorly. Mild to moderate bilateral facet joint arthritis and ligamentum flavum hypertrophy. Mild bilateral foraminal narrowing. L5-S1: Mild annular disc bulge with a central disc protrusion with annular fissure. No stenosis. Mode rate bilateral facet joint arthritis. MR/MR lumbar spine wo con* [id number] IMPRESSION: 1. LEFT paracentral and subarticular disc protrusion at L4-5 has increased in size since 10/02/2019. There is now more significant encroachment and displaceme nt of the traversing LEFT L5 nerve root. 2. Small central disc herniation with annular fissure at L5-S1. 3. Facet joint arthropathy throughout the lumbar spine but most significant at L4-5 and L5-S1.
== END 2021-06-30 13:47 | disposition home or self-care (01) ==
PROVIDERS: PCP Nurse Practitioner Family; Visit Provider Physician Assistant
DX: M54.16 Radiculopathy, lumbar region (principal); M51.26 Other intervertebral disc displacement, lumbar region; M51.27 Other intervertebral disc displacement, lumbosacral region
CPT/HCPCS: 72148

== ENCOUNTER → 2021-08-01 09:31 | Outpatient (BNVA) | payer OTHER, SELFPAY | PROVIDERS: PCP Nurse Practitioner Family; Visit Provider Physician Assistant | DX: M54.6 Pain in thoracic spine (principal); M17.10 Unilateral primary osteoarthritis, unspecified knee; M70.61 Trochanteric bursitis, right hip; M47.818 Spondylosis without myelopathy or radiculopathy, sacral and sacrococcygeal region | CPT/HCPCS: 72072 ==

== ENCOUNTER 2021-09-10 20:27 | Emergency (ER) | payer OTHER, SELFPAY ==
--- NOTE | 2021-09-10 20:28 | XRR_ITS ---
PROCEDURE INFORMATION: Exam: XR Right Hand Exam date and time: 09/10/2021 8:28 PM Age: 45 years old Clinical indication: Injury or trauma; Other: Punching injury; Puncture; Hand; Right; Injury date: 09/10/2021; Injury details: PT states she punched a fish tank, open cuts TECHNIQUE: Imaging protocol: XR Right hand. Views: 3 or more views. COMPARISON: No relevant prior studies available. FINDINGS: Bones/joints: Normal. Soft tissues: Normal. XR/XR hand RT min 3V* [id number] IMPRESSION: No acute findings. Negative for radiodense foreign body.
[2021-09-10 20:41] VITALS: BP 151/84; PULSE 96; RESP 16; TEMP 36.8; O2SAT 96; BMI 31.1
--- NOTE | 2021-09-10 20:50 | W.ED.EXTPRO ---
HPI - Extremity Problem General: Chief complaint: Extremity Injury, Upper Stated complaint: Injury Rt Hand Time Seen by Provider: 09/10/21 20:50 History of Present Illness: 45-year-old female comes in today for injury to the right hand. Patient reports that she was upset with her son which caused her to strike an empty fish tank with her right hand. Patient reports that she does not think the fish tank broke but she has superficial lacerations to the third knuckle of her right hand and right radial thumb area. No foreign body or active bleeding is noted. Patient is alert and oriented. Patient moves hand without difficulty. Review of Systems General: Reports: 10 or more systems reviewed and unremarkable except in HPI and below Musc: Reports: other (right hand injury) PFSH ED PFSH: Medical History Chronic midline low back pain with right-sided sciatica Encounter for long-term use of opiate analgesic H/O low back pain Opioid contract exists Smoker Surgical History H/O knee surgery H/O tubal ligation History of hysterectomy Family History Other Diabetes Hypertension Lung disease Psychiatric illness Social History Quit status (tobacco): has tried quititng Second hand smoke exposure: Yes Smoking risk assessment/counseling performed?: No Alcohol intake: current Adopted: No Caregiver/support person: No Lives independently: Yes Female Reproductive History: Date of last menstrual period: 12/20/10 Physical Exam Const: COMMON NORMALS: alert HENMT: COMMON NORMALS: atraumatic HEAD & SCALP: atraumatic Neck/C-Spine: COMMON NORMALS: full ROM Resp: COMMON NORMALS: normal respiratory effort Cardio: COMMON NORMALS: regular rate and regular rhythm RATE: regular rate RHYTHM: regular rhythm Extremity: RIGHT UPPER EXTREMITY: Yes hand & digits (Dry blood from superficial abrasions/lacerations.) Right hand and digits: Yes inspection, Yes palpation, Yes ROM exam, Yes neurovascular exam and Yes tendon exam Neuro: SENSORIUM/ORIENTATION: Yes alert Psych: COMMON NORMALS: cooperative and speech normal APPEARANCE: Yes disheveled SPEECH: Yes normal speech MOOD & AFFECT: Yes tearful Course Vital Signs: Vital signs: Vital Signs Temperature 98.3 F 02/20/22 20:41 Pulse Rate 96 09/10/21 20:41 Respiratory Rate 16 09/10/21 20:41 Blood Pressure 151/84 09/10/21 20:41 Pulse Oximetry 96 09/10/21 20:41 MDM - Extremity (Nontraumatic) Medical Decision Making 45-year-old female comes in today with complaints of injury to the right hand. On exam patient has some dried blood from superficial abrasions to the hand. No significant laceration was noted. Vital signs are normal. Patient is tearful and is upset due to a recent argument with her son. Differential diagnosis includes fracture, contusion, abrasions. X-ray of the hand noted no acute fractures. Abrasions were cleaned and dressed with bacitracin ointment and Band-Aids. Shimon wrap was applied to the hand for comfort and support. Discharge Plan Discharge Patient Disposition: Home Clinical Impression: Abrasion of hand Qualifiers: Encounter type: initial encounter Laterality: right Qualified Code(s): S60.511A - Abrasion of right hand, initial encounter Contusion of hand, right Qualifiers: Encounter type: initial encounter Qualified Code(s): S60.221A - Contusion of right hand, initial encounter Condition: Stable Prescriptions: No Action clonidine HCl 0.1 mg tablet 0.1 mg PO .PRN 0RF prednisone 20 mg tablet 20 mg PO DAILY Qty: 15 0RF Rx Instructions: 3 tabs PO days 1-3 2 tabs PO days 4-5 1 tab PO days 6-7 fluoxetine 40 mg capsule 40 mg PO QAM 0RF Marisol Allergy 60 mg Tablet 60 mg PO BID 0RF Tylenol Extra Strength 500 mg Tablet 1,000 mg PO PRN 0RF Aleve 220 mg Tablet 440 mg PO PRN 0RF gabapentin 100 mg capsule 100 mg PO TID 0RF ProAir HFA 90 mcg/actuation Hfa Aerosol Inhaler 2 puff INHALATION Q4H PRN (Reason: Shortness Of Breath) 0RF black cohosh 1 tab PO DAILY 0RF tizanidine 4 mg tablet 4 mg PO Q8H PRN (Reason: Muscle Spasm) 0RF lisinopril-hydrochlorothiazide 20-25 mg tablet 1 tab PO QAM 0RF Discharge Orders: Discharge ED (Routine); Ordered 02/20/22 Ordered By: Ej Villa Referrals: Tata Monson FNP [Primary Care Provider] - Discharge Diet: Usual diet Discharge Activity: Increase activity as tolerated Patient Instructions: Musculoskeletal Pain (ED) Activity Restrictions/Additional Instructions: Activity as tolerated. Use ice packs to the hand for comfort and pain. Use Tylenol and ibuprofen for further pain. Clean abrasions daily and apply antibiotic ointment and cover if needed. Follow-up with primary care for further instruction. Return to ER for new concerns. Coding Level of Care Code ED Deaf/Hard Of Hearing Specialist for Chg Fwd Exam Detailed
[2021-09-10] MEDS: bacitracin ointment Pkt 1 EACH TOPICAL (21:17)
[2021-09-10 21:21] VITALS: BP 154/88; PULSE 94; RESP 18; TEMP 36.8; O2SAT 96
== END 2021-09-10 21:24 | disposition home or self-care (01) ==
PROVIDERS: Emergency Provider Nurse Practitioner Family; PCP Nurse Practitioner Family
DX: S60.221A Contusion of right hand, initial encounter (principal); S60.511A Abrasion of right hand, initial encounter; Z77.22 Contact with and (suspected) exposure to environmental tobacco smoke (acute) (chronic); W22.8XXA Striking against or struck by other objects, initial encounter
CPT/HCPCS: 73130; 99283

== ENCOUNTER 2021-12-28 16:18 | Outpatient (CLI) | payer OTHER, SELFPAY ==
--- NOTE | 2021-12-28 16:41 | XR_ITS ---
WS: [id number] Exam: XR elbow RT min 3V* [id number] Date/Time of Exam: 12/28/2021 4:43 PM Reason For Exam: PAIN IN RIGHT ELBOW Findings: There are no fractures, soft tissue swelling, or calcifications. The elbow shows normal bony alignme nt. There is no irregularity of the bony architecture. XR/XR elbow RT min 3V* [id number] IMPRESSION: Negative right elbow.
== END 2021-12-28 16:19 | disposition home or self-care (01) ==
PROVIDERS: PCP Nurse Practitioner Family; Visit Provider Nurse Practitioner Family
DX: M25.521 Pain in right elbow (principal)
CPT/HCPCS: 73080

== ENCOUNTER → 2023-05-16 07:42 | Outpatient (BNVA) | payer OTHER, SELFPAY | PROVIDERS: PCP Nurse Practitioner Family; Visit Provider Nurse Practitioner | DX: S49.92XA Unspecified injury of left shoulder and upper arm, initial encounter; X50.9XXA Other and unspecified overexertion or strenuous movements or postures, initial encounter; R29.898 Other symptoms and signs involving the musculoskeletal system | CPT/HCPCS: 73030; 73080 ==

== ENCOUNTER 2023-06-12 08:32 | Outpatient (CLI) | payer OTHER, SELFPAY ==
--- NOTE | 2023-06-12 09:00 | MM_ITS ---
WS: [id number] BILATERAL SCREENING DIGITAL TOMOSYNTHESIS MAMMOGRAM WITH CAD HISTORY: SCREENING COMPARISON: None available. Bilateral CC and MLO views with tomosynthesis and synthetic mammography submitted. Computer aided det ection analyzed. Breast composition: There are scattered areas of fibroglandular density. No suspicious masses, microc alcifications or architectural distortion. IMPRESSION: MM/[place] [id number] BI-RADS: 1-Negative FOLLOW UP: 1 Year Follow-up
== END 2023-06-12 08:33 | disposition home or self-care (01) ==
LOC: MOBLMAM 08:41
PROVIDERS: PCP Nurse Practitioner Family; Visit Provider Nurse Practitioner Family
DX: Z12.31 Encounter for screening mammogram for malignant neoplasm of breast (principal)
CPT/HCPCS: 77063; 77067